=== PATIENT | male | born 1970 | race Caucasian/White ===

== ENCOUNTER 2024-10-01 12:24 | Inpatient (IN) | payer BC, SELFPAY ==
[2024-10-01] VITALS (11 sets, daily range): BP systolic 131–260; BP diastolic 86–140; PULSE 55–74; RESP 17–22; TEMP 36.3–37.2; O2SAT 95–99; BMI 21.7
--- NOTE | ~2024-10-01 | CT_ITS ---
CLINICAL HISTORY: pain CT angiography abdomen and pelvis with contrast. 3-D post processing. Comparison: None Findings: Aorta, mesenteric/renal arteries, and iliofemoral systems are patent. Atherosclerosis calcification of the aorta. No consolidation or effusion. Unremarkable gallbladder and solid organs. No urolithiasis. No bowel obstruction, pneumoperitoneum, or pneumatosis. Pelvic contents unremarkable. Normal appendix. Degenerative changes of the lumbar spine. [id number] compression fracture of the L4 vertebral body. IMPRESSION: No aortic dissection or aneurysm. Compression fracture of the L4 vertebral body. This document has been electronically signed by: Radha Gabriel MD on 10/01/2024 16:28:24
--- NOTE | ~2024-10-01 | CT_ITS ---
CLINICAL HISTORY: pain CT angiography chest with contrast. 3D Postprocessing. Comparison: None Findings: The heart is normal size. RV/LV ratio is normal. The thoracic aorta is normal caliber. No pulmonary artery filling defects. The visualized thyroid and mediastinum are unremarkable. No consolidation or effusion. Severe centrilobular emphysema. 5.3 cm pulmonary nodule of the right upper lobe. No acute fractures. IMPRESSION: No aortic dissection. No evidence of acute pulmonary embolism. Limited evaluation due to the phase of contrast. 5.3 mm pulmonary nodule of the right upper lobe. CT follow-up is recommended. Fleischner Society 2017 Guidelines for incidentally detected indeterminate nodules in persons 35 years of age or older. Single Solid Nodules: 5 mm or smaller nodules need no follow-up in low risk, and [address] follow-up is optional in high risk patients. 6-8 mm nodules have optional [address] follow-up in low risk, and 6-[address] follow-up followed by 18-[address] follow-up if no change in high risk patients. 9 mm or larger nodules should consider CT, PET/CT, or biopsy at 3 months regardless of patient risk. Multiple Solid Nodules: 5 mm or smaller nodules need no follow-up in low risk, and [address] follow-up is optional in high risk patients. 6-8 mm nodules need 3-[address] follow-up followed by an optional 18-[address] follow-up regardless of patient risk. 9 mm or larger nodules should consider 3-[address] follow-up. For low risk 18-24 month follow-up is optional, whereas for high risk it is needed. Single Ground Glass Nodules: 5 mm or smaller nodules need no followup 6 mm and larger nodules need CT at 6-12 months to confirm persistence, then CT every 2 years until 5 years Single Subsolid Nodules: 5 mm or smaller nodules need no followup 6 mm and larger nodules need CT at 3-6 months to confirm persistence. If no change and solid component /T/lt;6 mm, then CT every year until 5 years Multiple Ground Glass or Subsolid Nodules: 5 mm or smaller nodules need CT at 3-6 months. If stable, optional CT at 2 and 4 years. 6 mm or larger nodules need CT at 3-6 months. Subsequent management based on most suspicious nodule This document has been electronically signed by: Radha Gabriel MD on 10/01/2024 16:21:44
--- NOTE | ~2024-10-01 | CT_ITS ---
CLINICAL HISTORY: hypertensive [address] head without contrast Comparison: None Findings: No intra-axial mass, midline shift, hydrocephalus, or acute hemorrhage. No significant atrophy-like change or white matter disease. There is no sinus or mastoid fluid. The orbits are within normal limits. There is no acute fracture. IMPRESSION: 1. No acute intracranial findings. This document has been electronically signed by: Radha Gabriel MD on 10/01/2024 13:49:51
--- NOTE | ~2024-10-01 | XR_ITS ---
CLINICAL HISTORY: chest pain 1 view chest x-ray Comparison: None Findings: No consolidation or effusion. Heart size is normal. No acute fracture. IMPRESSION: 1. No acute findings. This document has been electronically signed by: Radha Gabriel MD on 10/01/2024 13:23:40
--- NOTE | 2024-10-01 12:26 | ECG_ITS ---
Test Reason : CHEST PAIN Blood Pressure : */* mmHG Vent. Rate : 72 BPM Atrial Rate : 72 BPM P-R Int : 142 ms QRS Dur : 102 ms QT Int : 384 ms P-R-T Axes : 7 10 38 degrees QTcB Int : 420 ms Sinus rhythm with occasional Premature ventricular complexes Moderate voltage criteria for LVH, may be normal variant ( Sokolow-Bryant , Benoit product ) Borderline ECG No previous ECGs available Referred By: Brennan Rosenthal Electronically Signed By: Rigoberto Gomez
--- NOTE | 2024-10-01 12:32 | ED_ITS ---
HPI - General Adult General Chief complaint: Chest Pain Stated complaint: Chest Pain Time Seen by Provider: 10/01/24 13:12 Source: patient, family (), RN notes reviewed and old records reviewed Mode of arrival: ambulatory Limitations: no limitations History of Present Illness ED Provider: Adams CHURCHILL narrative: 54-year-old male with past medical history significant for hypertension not on medication presents for evaluation of chest pain and palpitations. The patient reports that he has been noncompliant with his metoprolol since COVID after falling off with his primary doctor. He has therefore not been on any medications in about 5/6 years. He has had intermittent chest pain over last couple of years that was severe today and associated with palpitations and shortness of breath. Currently he was asymptomatic He denies any leg swelling, coughing, fevers, chills. He denies any known family history of coronary artery disease Related Data Previous Rx's ?Medication ?Instructions ?Recorded amlodipine 5 mg tablet 5 mg PO DAILY #90 tabs 10/02/24 lisinopril 10 mg tablet 10 mg PO DAILY #90 tabs 10/02/24 Allergies Allergy/AdvReac Type Severity Reaction Status Date / Time No Known Allergies Allergy Verified 10/01/24 12:28 [No Known Allergies*] Review of Systems 2 Constitutional: Constitutional: Denies body ache(s), Denies chills, Denies fever(s) and Denies headache(s) ENT: Denies headache(s) Cardiovascular: Cardiovascular: Reports chest pain, Reports chest pain at rest, Reports rapid heart rate, Reports palpitations and Reports dyspnea Respiratory: Respiratory: Denies cough and Reports dyspnea Gastrointestinal: Gastrointestinal: Denies abdominal pain, Denies nausea and Denies vomiting Musculoskeletal: Musculoskeletal: Denies back pain Neurologic: Denies headache(s) Endocrine: Endocrine: Reports palpitations PMFSH Social History Social History Household Members: Significant Other Housing: Apartment Do you presently have visiting nurse or other home services: No Alcohol intake: current Alcohol intake frequency: holidays/special occasions only Alcohol type: beer and hard liquor Patient Tobacco Use Status: Current everyday Tobacco user Tobacco use type: Smokeless Tobacco Substance Use Type: Marijuana service: No Physical Exam ED Vital Signs: Vital Signs - 24 hr 10/01/24 12:27 10/01/24 12:42 10/01/24 13:44 Temperature 98 F 99.0 F Pulse Rate 67 74 Respiratory Rate 19 22 H Blood Pressure 260/140 H 230/135 H 185/122 H Pulse Oximetry 98 99 Oxygen Delivery Method Room Air Room Air 10/01/24 14:37 10/01/24 14:40 10/01/24 14:40 Temperature 98.0 F Pulse Rate 68 Respiratory Rate 18 18 Blood Pressure 177/115 H Pulse Oximetry 96 96 Oxygen Delivery Method Room Air Room Air 10/01/24 14:54 Temperature 98.3 F Pulse Rate 73 Respiratory Rate 20 Blood Pressure 174/122 H Pulse Oximetry 97 Oxygen Delivery Method Room Air BMI result Body Mass Index 21.7 Const General: healthy appearing, comfortable, no acute distress, alert and awake Nutritional Appearance: well nourished Orientation/consciousness: patient oriented x3 HENMT Head: Yes normocephalic and Yes atraumatic Eyes Eyelids: Yes eyelids normal Conjunctivae: conjunctivae normal Sclerae: sclerae normal Corneas: corneas normal Pupils: Equal, round and reactive pupils present EOM: EOMs intact bilaterally Neck Neck: Yes full ROM Resp Effort & Inspection: normal respiratory effort, able to speak in complete sentences, no audible wheezes and not labored Auscultation: clear to auscultation bilaterally Cardio Rate: regular rate Rhythm: regular rhythm GI Inspection: No distended Palpation (GI): Soft to palpation, not firm, nontender, no guarding and not rigid Skin General skin exam: elasticity normal Neuro General: patient oriented x3 Cranial nerves: Yes Equal, round and reactive pupils present and Yes Bilaterally intact EOM present Cognition (Neuro): normal cognition Extrem Other: Moving all extremities well without any obvious deformities Course Course Course Narrative: RME: 54-year-old male history of hypertension noncompliant presents to ED for chest pain since this morning. States left-sided chest pain. Patient states feeling off. NIH score is 0. Blood pressure 216/140. EKG labs head CT scan ordered. Patient to be brought back to the ED immediately. Medications Administered Generic Name Dose Route Start Last Admin Trade Name Freq PRN Reason Stop Dose Admin Amlodipine Besylate 5 mg 10/02/24 09:00 10/02/24 07:59 Amlodipine Besylate 5 Mg Tablet PO 5 mg DAILY RAMONE Administration Protocol Lisinopril 10 mg 10/02/24 12:30 10/02/24 12:40 Lisinopril 10 Mg Tablet PO 10 mg DAILY [facility] Administration Protocol Metoprolol Tartrate 25 mg 10/01/24 17:20 10/02/24 07:58 Metoprolol Tartrate 25 Mg Tablet PO 25 mg BID [facility] Administration Protocol Senna 17.2 mg 10/01/24 21:00 10/01/24 20:37 Sennosides 8.6 Mg Tablet PO Not Given BEDTIME [facility] Sodium Chloride 3 ml 10/02/24 00:00 10/02/24 07:53 0.9 % Sodium Chloride Flush 3 Ml Syringe IVFLUSH 3 ml QSHIFT [facility] Administration Discontinued Medications Generic Name Dose Route Start Last Admin Trade Name Freq PRN Reason Stop Dose Admin Amlodipine Besylate 5 mg 10/01/24 13:38 10/01/24 13:44 Amlodipine Besylate 5 Mg Tablet PO 10/01/24 13:39 5 mg ONCE ONE Administration Protocol Hydralazine HCl 10 mg 10/01/24 17:18 10/02/24 04:44 Hydralazine Hcl 20 Mg/Ml Vial IVPUSH 10 mg Q6H PRN Administration forSBP >180 or DBP> 110 Protocol Iohexol 100 ml 10/01/24 14:26 10/01/24 14:27 Iohexol 350 Mg/Ml 100 Ml Infus..Btl IV 10/01/24 14:27 85 ml ONCE ONE Administration Nitroglycerin 0.5 inch 10/01/24 20:00 10/02/24 08:00 Nitroglycerin 2 % Oint 1 Gm Packet TRANSDERMA Not Given RQ6H WHILE AWAKE [facility] Medical Decision Making Medical Decision Making [facility] Narrative: 54-year-old male presents for evaluation of chest pain and shortness of breath. He was noncompliant with his previously prescribed metoprolol for many years. Of note, his blood pressure on arrival to the ED was 260/140. At the time my evaluation it is improved to 203/137 without any intervention. He is currently asymptomatic has no chest pain, palpitations or shortness of breath. His EKG shows sinus rhythm with occasional PVCs. No ST segment elevations or depressions. The patient's labs are reassuring, his troponin is within normal limits of 15.6. Renal function is normal. Given the patient's sudden, severe chest pain and markedly elevated blood pressure we will get a CT angiography of the chest and abdomen to evaluate the aorta. The patient will likely require admission for hypertensive emergency, as I do not feel he will be able to get to see a PCP in a reasonable time to manage his elevated blood pressure since he was not seen 1 in over 5 years. In regards to the patient's blood pressure, given that it is improving without intervention we will give oral amlodipine and hold off on IV antihypertensive medications, as I do not want to drop his blood pressure too quickly. We will continue to follow up closely Differential Diagnosis Differential Diagnoses: The differential diagnosis associated with the presentation includes Chest pain Hypertension Aortic dissection AAA PE less likely Anxiety Hypertensive emergency Admission/Observation Consideration of admission/observation: Escalation of care including admission/observation considered Consult Healthcare Provider Management of the patient was discussed with: Hospitalist Lab Data MDM Lab Attestation statement: I reviewed the patient's lab results. 10/01/24 12:43 10/02/24 05:43 Labs: Lab Results 10/01/24 10/01/24 Range/Units 12:43 12:44 WBC 8.4 (4.8-10.8) X10*3/uL RBC 5.67 (4.60-5.80) X10*6/uL Hgb 17.5 (14.0-18.0) g/dl Hct 50.2 (42.0-52.0) % MCV 88.5 (80.0-98.0) fL MCH 30.9 (27.0-33.0) pg MCHC 34.9 (31.0-36.0) g/dl RDW 14.1 (11.0-16.0) % Plt Count 264 (160-400) X10*3/uL MPV 9.5 (9.4-12.4) fL Immature Gran % (Auto) 0.5 H (0.0-0.4) % Neut % (Auto) 56.5 (45-73) % Lymph % (Auto) 31.0 (20-40) % [place] % (Auto) 9.5 (2-11) % Eos % (Auto) 1.9 (0-4) % Baso % (Auto) 0.6 (0-2) % Lymph # (Auto) 2.6 (1.2-4.9) X10*3/uL [place] # (Auto) 0.8 (0.1-1.2) X10*3/uL Eos # (Auto) 0.2 (0.0-0.4) X10*3/uL Baso # (Auto) 0.1 (0.0-0.2) X10*3/uL Abs Immat Gran (auto) 0.04 H (0.00-0.03) X10*3/uL Absolute Neuts (auto) 4.7 (2.0-8.3) x10*3/uL Absolute Nucleated RBC 0.000 (0.0-0.012) X10*3/uL Nucleated RBC % (auto) 0.0 (0.0-0.2) /100WBC PT 10.2 L (10.9-12.4) SEC INR 0.9 (0.9-1.1) APTT 31.7 (26.0-36.8) SEC Sodium 141 (135-145) mmol/L Potassium 3.5 (3.3-5.1) mmol/L Chloride 104 (96-108) mmol/L Carbon Dioxide 27 (22-29) mmol/L Anion Gap 14 (12-20) BUN 13 (9-16) mg/dL Creatinine 0.84 (0.5-1.4) mg/dL Estim Creat Clear Calc 100.7 Estimated GFR > 60 Random Glucose 102 (60-115) mg/dL Estimat Average Glucose 105 mg/dL Hemoglobin A1c % 5.3 (<6.0) % Calcium 9.4 (8.4-10.2) mg/dL Total Bilirubin 0.7 (0.0-1.0) mg/dL AST 26 (5-37) U/L ALT 22 (0-40) U/L Alkaline Phosphatase 50 (39-117) U/L Troponin I High Sens 15.6 (<3.5-35.0) ng/L Total Protein 7.6 (6.5-8.0) g/dL Albumin 4.6 (3.5-5.0) g/dL Independent Interpretation I performed an independent interpretation of an: EKG (Normal sinus rhythm with the occasional PVC. Rate of [address] segment changes. OH interval within normal limits.) Radiology Impression Discussion of test interpretation with radiology: I have reviewed the radiologist's reading. Radiologist Impression: Findings: The heart is normal size. RV/LV ratio is normal. The thoracic aorta is normal caliber. No pulmonary artery filling defects. The visualized thyroid and mediastinum are unremarkable. No consolidation or effusion. Severe centrilobular emphysema. 5.3 cm pulmonary nodule of the right upper lobe. No acute fractures. IMPRESSION: No aortic dissection. No evidence of acute pulmonary embolism. Limited evaluation due to the phase of contrast. 5.3 mm pulmonary nodule of the right upper lobe. CT follow-up is recommended. Fleischner Society 2017 Guidelines for incidentally detected indeterminate nodules in persons 35 years of age or older. Single Solid Nodules: 5 mm or smaller nodules need no follow-up in low risk, and [address] follow-up is optional in high risk patients. 6-8 mm nodules have optional [address] follow-up in low risk, and 6-[address] follow-up followed by 18-[address] follow-up if no change in high risk patients. 9 mm or larger nodules should consider CT, PET/CT, or biopsy at 3 months regardless of patient risk. Multiple Solid Nodules: 5 mm or smaller nodules need no follow-up in low risk, and [address] follow-up is optional in high risk patients. 6-8 mm nodules need 3-[address] follow-up followed by an optional 18-[address] follow-up regardless of patient risk. 9 mm or larger nodules should consider 3-[address] follow-up. For low risk 18-24 month follow-up is optional, whereas for high risk it is needed. Single Ground Glass Nodules: 5 mm or smaller nodules need no followup 6 mm and larger nodules need CT at 6-12 months to confirm persistence, then CT every 2 years until 5 years Single Subsolid Nodules: 5 mm or smaller nodules need no followup 6 mm and larger nodules need CT at 3-6 months to confirm persistence. If no change and solid component /T/lt;6 mm, then CT every year until 5 years Multiple Ground Glass or Subsolid Nodules: 5 mm or smaller nodules need CT at 3-6 months. If stable, optional CT at 2 and 4 years. 6 mm or larger nodules need CT at 3-6 months. Subsequent management based on most suspicious nodule This document has been electronically signed by: Radha Gabriel MD on 10/01/2024 16:21:44 Findings: Aorta, mesenteric/renal arteries, and iliofemoral systems are patent. Atherosclerosis calcification of the aorta. No consolidation or effusion. Unremarkable gallbladder and solid organs. No urolithiasis. No bowel obstruction, pneumoperitoneum, or pneumatosis. Pelvic contents unremarkable. Normal appendix. Degenerative changes of the lumbar spine. [id number] compression fracture of the L4 vertebral body. IMPRESSION: No aortic dissection or aneurysm. Compression fracture of the L4 vertebral body. This document has been electronically signed by: Radha Gabriel MD on 10/01/2024 16:28:24 Discharge Plan Discharge Clinical Impression: Chest pain, Hypertensive emergency Patient Disposition: Admitted As Inpatient Interventions: Admission Worksheet (ED) Last Done: 10/01/24 18:11 Discharge Date/Time: 10/02/24 09:05
--- NOTE | 2024-10-01 12:43 | PC.NURSE ---
54 M presents to ED c/o chest pain, non radiating, rating it 8/10. Denies N/V. VSS expect for hypertension. Patient claims I havent take my blood pressure medication in years 18 placed in RAC. Labs obtained sent to lab. Patient reports increased SOB. Denies hx of asthma and COPD, on RA w/o difficulty no WOB. Patient pending CT/ xray to be completed at this time.
[2024-10-01 12:53] LABS: MANUAL DIFF FLAG NO
[2024-10-01 12:55] LABS: Basophils Absolute Auto 0.1 X10*3/uL (0.0-0.2); Basophils Percent Auto 0.6 % (0-2); Eosinophils Absolute Auto 0.2 X10*3/uL (0.0-0.4); Eosinophils Percent Auto 1.9 % (0-4); Hematocrit 50.2 % (42.0-52.0); Hemoglobin 17.5 g/dl (14.0-18.0); Imm Gran Abs Auto 0.04 X10*3/uL (0.00-0.03); Imm Gran Pct Auto 0.5 % (0.0-0.4); Lymphocytes Absolute Auto 2.6 X10*3/uL (1.2-4.9); Mean Corpuscular HGB Conc 34.9 g/dl (31.0-36.0); Mean Corpuscular Hemoglobin 30.9 pg (27.0-33.0); Mean Corpuscular Volume 88.5 fL (80.0-98.0); Mean Platelet Volume 9.5 fL (9.4-12.4); Monocytes Absolute Auto 0.8 X10*3/uL (0.1-1.2); Monocytes Percent Auto 9.5 % (2-11); Neutrophils Absolute Auto 4.7 x10*3/uL (2.0-8.3); Neutrophils Percent Auto 56.5 % (45-73); Platelet Count 264 X10*3/uL (160-400); Red Blood Count 5.67 X10*6/uL (4.60-5.80); Red Cell Distribution Width 14.1 % (11.0-16.0); White Blood Count 8.4 X10*3/uL (4.8-10.8)
[2024-10-01 13:03] LABS: INTERNATIONAL NORM RATIO 0.9 (0.9-1.1); Prothrombin Time 10.2 SEC (10.9-12.4)
[2024-10-01 13:05] LABS: Partial Thromboplastin Time 31.7 SEC (26.0-36.8)
[2024-10-01 13:21] LABS: Troponin-I High Sensitivity 15.6 ng/L (<3.5-35.0)
[2024-10-01 13:28] LABS: Alanine Aminotransferase 22 U/L (0-40); Albumin Level 4.6 g/dL (3.5-5.0); Alkaline Phosphatase 50 U/L (39-117); Anion Gap 14 (12-20); Aspartate Amino Transferase 26 U/L (5-37); Bilirubin Total 0.7 mg/dL (0.0-1.0); Blood Urea Nitrogen 13 mg/dL (9-16); Calcium 9.4 mg/dL (8.4-10.2); Carbon Dioxide 27 mmol/L (22-29); Chloride 104 mmol/L (96-108); Creatinine Clr Calc Pharmacy 100.7; Estimated Glomerular Filt Rate > 60; Glucose Random 102 mg/dL (60-115); Potassium 3.5 mmol/L (3.3-5.1); Sodium 141 mmol/L (135-145); Total Protein 7.6 g/dL (6.5-8.0)
[2024-10-01] MEDS: amLODIPine Besylate 5 MG TABLET PO (13:44)
--- NOTE | 2024-10-01 13:50 | PC.NURSE ---
Patient remains hypertensive, medication given per provider order. Effectiveness pending
[2024-10-01] MEDS: iohexoL 350 MG/ML 100 ML INFUS..BTL IV (14:27)
--- NOTE | 2024-10-01 16:50 | PC.NURSE ---
CT/xray scans resulted. Patient spoke with ED provider/ aware of plan in regards to being admitted. Patient currently pending admission.
--- NOTE | 2024-10-01 16:57 | PHA.MEDREC ---
Pharmacy Consult ? Medication Reconciliation Pharmacy has completed the medication reconciliation. Spoke with patient to confirm. He does not use any prescriptions or OTC.
--- NOTE | 2024-10-01 16:59 | P.HPHOSP_ITS ---
History of Present Illness Date of Service: 10/01/24 Chief Complaint: chest pain, shortness of breath 54 year male with history of HTN but has not taking meds in nearly 5 years as he has been lost to follow up following covid 19 epidemic, and presents with chest pain, shortness of breath since this morning. He was found to have BP 260/140, cardiac enzymes negative. ECG show no acute finding, LVH by voltage criteria, CTA of chest no PE or disection, CT head no acute finding. CTA of abdomen no acute finding. Following Just 5 mg of PO Norvasc, blood pressure is now 174/122 Review of Systems 2 Review of Systems: Gen: no fever Resp: no sob, no cough CV: no chest, no DUFF, no leg edema GI: No n/v, no abd pain Neuro: No confusion Yes all other systems are reviewed and are negative [facility] Social History Alcohol intake: current Alcohol intake frequency: holidays/special occasions only Alcohol type: beer and hard liquor Smoked in Last 30 Days: Yes Use of substances other than those prescribed or required for medical reasons: No Advance Directives: No Advance Directives Information Provided: No Do you have a plan to hurt others: No Plan Meds Allergies Allergy/AdvReac Type Severity Reaction Status Date / Time No Known Allergies Allergy Verified 10/01/24 12:28 [No Known Allergies*] Active Medications: Current Medications Acetaminophen (Acetaminophen 325 Mg Tablet) 650 mg PO Q6H PRN PRN Reason: Pain, Mild 1-3,fever,headache Calcium Carbonate (Calcium Carbonate 750 Mg Tab.Chew) 750 mg PO Q4H PRN PRN Reason: Heartburn Magnesium Hydroxide (Milk Of Magnesia 30 Ml Oral.Susp) 30 ml PO DAILY PRN PRN Reason: Constipation Melatonin (Melatonin 3 Mg Tablet) 6 mg PO BEDTIME PRN PRN Reason: Insomnia Ondansetron HCl (Ondansetron Hcl 4 Mg/2 Ml Vial) 4 mg IVPUSH Q8H PRN PRN Reason: Nausea and Vomiting Senna (Sennosides 8.6 Mg Tablet) 17.2 mg PO BEDTIME RAMONE Sodium Chloride (0.9 % Sodium Chloride Flush 3 Ml Syringe) 3 ml IVFLUSH QSHIFT RAMONE Home Medications ?Medication ?Instructions ?Recorded ?Confirmed ?Last Taken ?Type No Known Home Meds 10/01/24 10/01/24 Unknown History Physical Exam 2 Vital Signs and Narrative: Vital Signs: Last Vital Signs Temp 98.3 F 10/01/24 14:54 Pulse 73 10/01/24 14:54 Resp 20 10/01/24 14:54 BP 174/122 H 10/01/24 14:54 Pulse Ox 97 10/01/24 14:54 O2 Del Method Room Air 10/01/24 14:54 BMI result Body Mass Index 21.7 Const: Other: Constitutional: Alert, in no distress, Mental Status: Oriented to person, place and time. Eyes: Pupils are equal, round and reactive to light. Ear, Nose and Throat: Oropharynx clear, mucous membranes moist. Ears and nose without deformity. Trachea midline. Respiratory: Clear to auscultation. No wheezing, rales or rhonchi. Cardiovascular: S1 S2 regular. No murmurs, rubs or gallops. Gastrointestinal: Abdomen soft, non-tender, non-distended. Normal bowel sounds.? Neurologic: Cranial nerves II-XII grossly intact. No focal neurological deficits. Moves all extremities spontaneously.? Skin: No rashes or lesions.? Musculoskeletal: No cyanosis or clubbing. Psychiatric: Normal mood and affect? Results Labs 10/01/24 12:43 10/01/24 12:44 Labs: Laboratory Results - last 24 hr 10/01/24 10/01/24 12:43 12:44 MCV 88.5 MCH 30.9 MCHC 34.9 RDW 14.1 Plt Count 264 MPV 9.5 Immature Gran % (Auto) 0.5 H Neut % (Auto) 56.5 Lymph % (Auto) 31.0 [place] % (Auto) 9.5 Eos % (Auto) 1.9 Baso % (Auto) 0.6 Lymph # (Auto) 2.6 [place] # (Auto) 0.8 Eos # (Auto) 0.2 Baso # (Auto) 0.1 Abs Immat Gran (auto) 0.04 H Absolute Neuts (auto) 4.7 Absolute Nucleated RBC 0.000 Nucleated RBC % (auto) 0.0 PT 10.2 L INR 0.9 APTT 31.7 Anion Gap 14 Estim Creat Clear Calc 100.7 Estimated GFR > 60 Random Glucose 102 Calcium 9.4 Total Bilirubin 0.7 AST 26 ALT 22 Alkaline Phosphatase 50 Total Protein 7.6 Albumin 4.6 Assessment and Plan (1) Hypertensive emergency: Status: Acute (2) Chest pain: Status: Acute Plan 54 year male with history of HTN but has not taking meds in nearly 5 years and presents with chest pain, shortness of breath since this morning. He was found to have BP 260/140, cardiac enzymes negative. ECG show no acute finding, LVH by voltage criteria, CTA of chest no PE or disection, CT head no acute finding. CTA of abdomen no acute finding. Following Just 5 mg of PO Norvasc, blood pressure is now 174/122 HTN urgency, BP has come down but remains high start oral meds including Norvasc and Metoprolol IV hydralazine or Labetalol PRN for extremely high BP Avoid rapid lowering of BP Anxiety PRN ativan Pulmonary nodule, small, outpatient f/u Other screen: check lipid in the morning, A1C Quality Stroke Does the patient have a stroke diagnosis?: No VTE Prior VTE?: No VTE Risk Level:: Medical - low VTE Device Contraindication: Treatment Not Indicated VTE Drug Contraindication: Treatment Not Indicated
[2024-10-01] MEDS: Metoprolol Tartrate 25 MG TABLET PO (17:31)
[2024-10-01 17:40] LABS: Estimated Average Glucose 105 mg/dL; Hemoglobin A1C 154.5468 umol/L; Hemoglobin A1c % 5.3 % (<6.0); Total Hemoglobin (HGBA1C) 4542.2908 umol/L
[2024-10-01 17:49] LABS: Alanine Aminotransferase 18 U/L (0-40); Albumin Level 3.9 g/dL (3.5-5.0); Aspartate Amino Transferase 23 U/L (5-37); Bilirubin Direct 0.2 mg/dL (0.0-0.5); Bilirubin Total 0.7 mg/dL (0.0-1.0); Cholesterol 227 mg/dL (<200); HDL Cholesterol 68 mg/dL (>40); LDL Cholesterol Calculated 137 mg/dL (<100); Total Protein 6.4 g/dL (6.5-8.0); Triglycerides 114 mg/dL (<150)
[2024-10-01 18:03] LABS: Alkaline Phosphatase 42 U/L (39-117)
[2024-10-01 18:10] LABS: Thyroid Stimulating Hormone 2.54 uIU/mL (0.32-4.0)
[2024-10-02] VITALS (16 sets, daily range): BP systolic 132–166; BP diastolic 78–114; PULSE 45–88; RESP 13–18; TEMP 36.3–36.6; O2SAT 95–97; BMI 22.1
[2024-10-02] MEDS: hydrALAZINE HCl 20 MG/ML VIAL 10 MG IVPUSH (04:44)
[2024-10-02 06:06] LABS: Anion Gap 16 (12-20); Blood Urea Nitrogen 15 mg/dL (9-16); Calcium 8.8 mg/dL (8.4-10.2); Carbon Dioxide 21 mmol/L (22-29); Chloride 106 mmol/L (96-108); Creatinine Clr Calc Pharmacy 115.9; Estimated Glomerular Filt Rate > 60; Glucose Random 101 mg/dL (60-115); Sodium 139 mmol/L (135-145)
[2024-10-02] MEDS: 0.9 % Sodium Chloride Flush 3 ML SYRINGE IVFLUSH (07:53)
[2024-10-02] MEDS: Metoprolol Tartrate 25 MG TABLET PO (07:58)
[2024-10-02] MEDS: amLODIPine Besylate 5 MG TABLET PO (07:59)
--- NOTE | 2024-10-02 08:00 | PC.NURSE ---
Provider notified of patients BP, stating to hold nitro patch, give po meds, and patient will be discharged from the ED ,not to send upstairs. Patient aware and in agreement with plan
--- NOTE | 2024-10-02 08:07 | P.DS_ITS ---
DS: Providers Provider Date of Service: 10/02/24 Date of admission: 10/01/24 16:53 Date of discharge: 10/02/24 Primary care physician: Richard Gandara MD DS: Diagnosis Discharge Diagnosis (1) Hypertensive emergency: Status: Acute (2) Chest pain: Status: Acute DS: Summary Hospital Course Hospital Course: This is a 54-year-old male with a history of hypertension who has been off medications for nearly five years after being lost to follow-up during the COVID-19 pandemic. He presented with chest pain and shortness of breath that began earlier in the day. On arrival, his blood pressure was markedly elevated at 260/140 mmHg. Cardiac enzymes were negative. Electrocardiogram showed no acute ischemic changes but did demonstrate left ventricular hypertrophy by voltage criteria. CTA of the chest ruled out pulmonary embolism and aortic dissection. CT of the head was unremarkable for acute findings. CTA of the abdomen also showed no acute abnormalities. After administration of 5 mg of oral Norvasc, his blood pressure improved to 174/122 mmHg. During his hospital course, the patient was admitted and started on Norvasc 5 mg daily, metoprolol 25 mg twice daily, nitroglycerin paste, and PRN hydralazine for accelerated hypertension. His blood pressure gradually improved and at the time of discharge was 140/104 mmHg. He remained asymptomatic without chest pain or shortness of breath. It is anticipated that he will require further medication adjustment as an outpatient. Laboratory testing revealed a total cholesterol level of 227 mg/dL and an LDL cholesterol of 137 mg/dL. He was star tej on Lipitor 20 mg daily. He has been advised to monitor his blood pressures at home and follow up with a primary care physician for further management. He will be discharged with lisinopril 10, norvasc 5. HR was droping to 45 with metoprolol, however no pauses Status at Discharge Cognitive/behavioral status at discharge: Chief Complaint: chest pain, shortness of breath Time Attestation Discharge Coordination Time (in mins): 35 Quality: Safe Use of Opioids Does Pt have an Active Cancer Diagnosis on the Problem List?: No Quality: Stroke Does the patient have a stroke diagnosis?: No Physical Exam Vital Signs: Vital Signs: Last Vital Signs Temp 97.8 F 10/02/24 08:05 Pulse 88 10/02/24 08:05 Resp 18 10/02/24 08:05 BP 140/104 H 10/02/24 07:58 Pulse Ox 96 10/02/24 08:05 O2 Del Method Room Air 10/02/24 08:05 BMI result Body Mass Index 21.7 DS: Data Data Completed and Pending Labs on day of discharge: Laboratory Results - last 24 hr 10/01/24 10/01/24 10/01/24 12:43 12:44 17:25 WBC 8.4 RBC 5.67 Hgb 17.5 Hct 50.2 MCV 88.5 MCH 30.9 MCHC 34.9 RDW 14.1 Plt Count 264 MPV 9.5 Immature Gran % (Auto) 0.5 H Neut % (Auto) 56.5 Lymph % (Auto) 31.0 [place] % (Auto) 9.5 Eos % (Auto) 1.9 Baso % (Auto) 0.6 Lymph # (Auto) 2.6 [place] # (Auto) 0.8 Eos # (Auto) 0.2 Baso # (Auto) 0.1 Abs Immat Gran (auto) 0.04 H Absolute Neuts (auto) 4.7 Absolute Nucleated RBC 0.000 Nucleated RBC % (auto) 0.0 Hold Purple Top PT 10.2 L INR 0.9 APTT 31.7 Sodium 141 Potassium 3.5 Chloride 104 Carbon Dioxide 27 Anion Gap 14 BUN 13 Creatinine 0.84 Estim Creat Clear Calc 100.7 Estimated GFR > 60 Random Glucose 102 Estimat Average Glucose 105 Hemoglobin A1c % 5.3 Calcium 9.4 Total Bilirubin 0.7 0.7 Direct Bilirubin 0.2 AST 26 23 ALT 22 18 Alkaline Phosphatase 50 42 Troponin I High Sens 15.6 Total Protein 7.6 6.4 L Albumin 4.6 3.9 Triglycerides 114 Cholesterol 227 H LDL Cholesterol, Calc 137 H HDL Cholesterol 68 TSH 2.54 10/02/24 05:43 WBC RBC Hgb Hct MCV MCH MCHC RDW Plt Count MPV Immature Gran % (Auto) Neut % (Auto) Lymph % (Auto) [place] % (Auto) Eos % (Auto) Baso % (Auto) Lymph # (Auto) [place] # (Auto) Eos # (Auto) Baso # (Auto) Abs Immat Gran (auto) Absolute Neuts (auto) Absolute Nucleated RBC Nucleated RBC % (auto) Hold Purple Top SEE NOTE PT INR APTT Sodium 139 Potassium 4.0 Chloride 106 Carbon Dioxide 21 L Anion Gap 16 BUN 15 Creatinine 0.73 Estim Creat Clear Calc 115.9 Estimated GFR > 60 Random Glucose 101 Estimat Average Glucose Hemoglobin A1c % Calcium 8.8 D Total Bilirubin Direct Bilirubin AST ALT Alkaline Phosphatase Troponin I High Sens Total Protein Albumin Triglycerides Cholesterol LDL Cholesterol, Calc HDL Cholesterol TSH Discharge Plan Discharge Anticipated Discharge Date/Time: 10/02/24 08:04 Patient Disposition: Home, Self-Care Discharge Diagnosis: Hypertension urgency, chest pain Referrals: Richard Gandara MD [Primary Care Provider] - 1 Week Discharge Medications: New amlodipine 5 mg Tablet 5 mg PO DAILY Qty: 90 0RF Protocol: Hold for SBP< HOLD for SBP < : 90 lisinopril 10 mg Tablet 10 mg PO DAILY Qty: 90 0RF Protocol: Hold for SBP< HOLD for SBP < : 90 atorvastatin [Lipitor] 20 mg tablet 20 mg PO BEDTIME Qty: 90 0RF Discharge Orders: Discharge Order (Routine); Ordered 10/02/24 Ordered By: Marlo Ramos Diet: Advance to usual diet Activity on Discharge: As tolerated Stand Alone Forms: Patient Portal Discharge page, Work/School Release Print Language: Korean Other Ambulatory Orders: Basic Metabolic Panel Fasting (Routine) Timeframe: 1 Week Facility: [facility] - Location: Laboratory Ordered By: Marlo Ramos Care Plan Goals: Achieve blood pressure control to target <140/90 mmHg and reduce cardiovascular risk by initiating and titrating antihypertensive and lipid-lowering therapy; ensure symptom resolution and prevent future hypertensive crises. Health Concerns: Untreated and uncontrolled HTN causing chest pain and shortness of breath Plan of Treatment: * Continue Norvasc 5 mg daily and lisinopril 10 mg daily * Start Lipitor 20 mg daily for cholesterol management. * Encourage home blood pressure monitoring twice daily. * Follow up with primary care for medication adjustment and cardiovascular risk assessment within 1?2 weeks--call Dr. Gandara's office Assessment: * Discharge Date/Time: 10/02/24 14:59
--- NOTE | 2024-10-02 09:44 | MHC.CM.PN ---
Pt. lives with spouse, he is independent, no home health services or DME. HCP discussed, form was given for him to complete on his own. PCP is the provider that is taking over Dr. Medina's patients. Pt will go home via , DCP: home, self care. CM to follow for DC needs.
[2024-10-02] MEDS: lisinopriL 10 MG TABLET PO (12:40)
== END 2024-10-02 14:59 | disposition home or self-care (01) | DRG 199 ==
LOC: HO.ED 16:38 → HO.EDOVER 17:03 → HO.IMC 10-02 07:46 → HO.EDOVER 10-02 08:05 → HO.IMC 10-02 08:14
PROVIDERS: Physician Assistant; Admitting Provider Internal Medicine; Emergency Provider Emergency Medicine; PCP Internal Medicine; Visit Provider Internal Medicine
DX: I16.1 Hypertensive emergency (principal); F17.210 Nicotine dependence, cigarettes, uncomplicated; I10 Essential (primary) hypertension; T44.7X6A Underdosing of beta-adrenoreceptor antagonists, initial encounter; F41.9 Anxiety disorder, unspecified; Z71.6 Tobacco abuse counseling
CPT/HCPCS: 36415; 70450; 71045; 71275; 74174; 80048; 80053; 80061; 80076; 83036; 84443; 84484; 85025; 85610; 85730; 93005; 99285; J0360; Q9967

== ENCOUNTER → 2024-10-01 12:26 | Outpatient (BNV) | payer BC, SELFPAY | PROVIDERS: Admitting Provider Internal Medicine; Emergency Provider Emergency Medicine; PCP Internal Medicine; Visit Provider Internal Medicine Cardiovascular Disease | DX: I49.3 Ventricular premature depolarization (principal); I51.7 Cardiomegaly | CPT/HCPCS: 93010 ==

== ENCOUNTER → 2024-10-01 12:28 | Outpatient (BNV) | payer BC, SELFPAY | PROVIDERS: Emergency Provider Emergency Medicine; PCP Internal Medicine; Visit Provider Nuclear Medicine | DX: S32.040A Wedge compression fracture of fourth lumbar vertebra, initial encounter for closed fracture (principal); R91.1 Solitary pulmonary nodule; R07.9 Chest pain, unspecified; I10 Essential (primary) hypertension | CPT/HCPCS: 70450; 71045; 71275; 74174 ==

== ENCOUNTER → 2024-10-01 16:53 | Outpatient (BNV) | payer BC, SELFPAY | PROVIDERS: Admitting Provider Internal Medicine; Emergency Provider Emergency Medicine; PCP Internal Medicine; Visit Provider Internal Medicine | DX: I16.1 Hypertensive emergency (principal); R07.9 Chest pain, unspecified | CPT/HCPCS: 99223 ==

== ENCOUNTER 2025-02-07 15:49 | Outpatient (AMB) | payer BC, SELFPAY ==
--- NOTE | 2025-02-07 08:39 | A.OFFPC_ITS ---
Vital Signs 02/07/25 16:13 Height 6 ft Weight 161 lb BMI 21.8 BP 130/76 Blood Pressure Location Lt brachial Position Sitting Pulse 90 Pulse Source Pulse Oximeter Temp 97.7 F Temp Source Temporal Artery Scan Pulse Oximetry (%) 95 Oxygen Delivery Method Room Air Intake Visit Reasons: Annual / Dr Gandara Maintenance [place] Required: No Accompanied by: Self / Same As Patient Allergies No Known Allergies (No Known Allergies*) Allergy (Verified 02/07/25 08:40) Tobacco use date assessed: 02/07/25 Dental Screening Dental Screen Date: 02/07/25 Did you have a dental visit in the last 12 months?: Yes Did you have a dental problem in the last 6 months where you did not have access to dental care?: No HPI HPI Comments History of Present Illness Details The patient is a 54-year-old male presenting with concerns of high blood pressure and anxiety management in new patient visit. The patient has a history of essential hypertension, previously managed with amlodipine and Lisinopril, but has not taken his medication for approximately three weeks, leading to a deterioration in his condition. He was seen in the emergency room in September for chest pain and elevated blood pressure. His BP today was 130/76. The patient reports significant anxiety exacerbated by the COVID-19 pandemic and personal stressors, including being the primary caregiver for his family. He believes that managing his anxiety would help control his blood pressure better, but previous medication was ineffective, and he attempted to increase the dosage without success. The patient has been advised to consider cholesterol management due to elevated levels noted during an emergency room visit, although he has not started any medication for hyperlipidemia. [facility] Medical History (Updated 02/12/25 @ 00:56 by SOLITARIO Wayne) Anxiety Hyperlipidemia Hypertension Family History (Updated 02/07/25 @ 16:18 by Criss Suárez MA) Mother No problems noted. Father No problems noted. Social History Household Members: Significant Other Housing: Apartment Do you presently have visiting nurse or other home services: No Alcohol intake: current Alcohol intake frequency: holidays/special occasions only Alcohol type: beer and hard liquor Patient Tobacco Use Status: Never used Tobacco e-Cigarette/Vaping Use: Currently Using (only vape) Substance Use Type: Marijuana service: No Current occupational status: employed Cognitive needs: No Hearing needs: No Vision needs: Yes (reading glasses) Questionnaire PHQ-9 Over the last 2 weeks, how often have you been bothered by any of the following problems? 1. Little interest or pleasure in doing things: not at all 2. Feeling down, depressed, or hopeless: nearly every day (anxiety) 3. Trouble falling or staying asleep, or sleeping too much: not at all 4. Feeling tired or having little energy: nearly every day 5. Poor appetite or overeating: not at all 6. Feeling bad about yourself - or that you are a failure or have let yourself or your family down: not at all 7. Trouble concentrating on things, such as reading the newspaper or watching television: not at all 8. Moving or speaking so slowly that other people could have noticed. Or the opposite - being so fidgety or restless that you have been moving around a lot more than usual: not at all 9. Thoughts that you would be better off or of hurting yourself in some way: not at all Total score: 6 Source: Developed by Drs. Art Colbert, Alba Higgins, Taco Majano and colleagues, with an educational jolly from [employer] Thrive Questionnaire Date Thrive assessed: 02/07/25 I am a: Patient Within the past 12 months, did the food you bought not last and you didn't have the money to get more?: Never true Within the past 12 months, did you worry whether your food would run out before you got money to buy more?: Never true Do you have trouble paying for medicines?: No Do you have trouble getting transportation to medical appointments?: No Do you have trouble paying your heating and electricity bill?: No Do you have trouble taking care of your child, family member or friend?: No Do you have trouble with day-to-day activities such as bathing, preparing meals, shopping, managing finances, etc.?: No Are you currently unemployed and looking for a job?: No Are you interested in more education?: No THRIVE Score: 0 AUDIT C Alcohol Use Questionnaire (AUDIT-C) 1. How often do you have a drink containing alcohol?: Monthly or less 2. How many drinks containing alcohol do you have on a typical day when you are drinking?: 1 or 2 3. How often do you have six or more drinks on one occasion?: Less than monthly Total Score: 2 JUSTIN-7 AMB Questionnaire JUTSIN-7 Date JUSTIN - 7 assessed: 02/07/25 Feeling nervous, anxious, or on edge: 3 = Nearly every day Not being able to stop or control worryin = Not at all Worrying too much about different things: 0 = Not at all Trouble relaxin = Not at all Being so restless that it is hard to sit still: 0 = Not at all Becoming easily annoyed or irritable: 0 = Not at all Feeling afraid as if something awful might happen: 0 = Not at all Total JUSTIN-7 score (0-4 normal; 5-9 mild; 10-14 moderate; 15-21 severe): 3 Source: Developed by Drs. Art Colbert, Abla Higgins, Taco Majano and colleagues, with an educational jolly from [employer] Review of Systems Const Details: CONSTITUTIONAL Negative HEAD/NECK Pressure in head EAR/NOSE/MOUTH/THROAT Negative RESPIRATORY Negative CARDIOVASCULAR No chest pain No shortness of breath GASTROINTESTINAL Negative NEUROLOGICAL Negative PSYCHIATRIC Anxiety Physical exam (Primary Care) Vital Signs: Last Vital Signs Temp 97.7 F 02/07/25 16:13 Pulse 90 02/07/25 16:13 BP 130/76 02/07/25 16:13 Pulse Ox 95 02/07/25 16:13 Oxygen Delivery Method Room Air 02/07/25 16:13 BMI result Body Mass Index 21.8 GENERAL Well developed, Well nourished, in no apparent distress HEENT Head-Normocephalic Eyes- PERRLA, EOMI, Conjuctiva clear, lids WNL Ears- Canals clear, TMs WNL Mouth/Throat-No lesions, no erythema, no exudate Neck- Supple, No lymphadenopathy, thyroid WNL RESPIRATORY Normal I:E, Clear to auscultation CARDIOVASCULAR Regular, rate and rhythm, No murmurs or rubs GASTROINTESTINAL Soft, nontender, normal bowel sounds, no masses NEUROLOGICAL Gait normal PSYCHIATRIC Oriented to person, place and time Mood and affect Anxiety Appearance WNL Speech WNL Thought processes WNL Tobacco/Smoking Status: Tobacco use Status Tobacco use date assessed 02/07/25 02/07/25 08:41 Patient Tobacco Use Status Never used Tobacco 02/07/25 16:19 Tobacco use type 02/07/25 16:19 e-Cigarette/Vaping Use Currently Using (only vape) 02/07/25 16:19 PHQ-9: PHQ-9 Score PHQ-9: Total score 6 02/07/25 17:29 Thrive Assessment: Date of Thrive Assessment Date Thrive assessed 02/07/25 02/07/25 08:41 Coding Level of Care Code New Pt New Pt Level 4 (97029) Patient Type New Diagnoses Primary hypertension I10 Hypertension type: primary hypertension Anxiety F41.9 Hyperlipidemia E78.5 Time Spent (min) 35 Comment Time spent on H&P, patient education, placing orders and arranging follow up Assessment & Plan Assessment & Plan (1) Hypertension: Comment: BP today was 130/76 Code(s): I10 - Essential (primary) hypertension Category: Medical Qualifiers: Hypertension type: primary hypertension Qualified Code(s): I10 - Essential (primary) hypertension Plan: The patient will resume amlodipine and Lisinopril for blood pressure management, as he has not taken these medications for three weeks. Routine blood work will be conducted to monitor his condition, and a follow-up appointment is scheduled in four to six weeks to assess the efficacy of the treatment and review lab results. (2) Anxiety: Code(s): F41.9 - Anxiety disorder, unspecified Category: Medical Plan: The patient will start sertraline at bedtime as an SSRI to manage anxiety, with hydroxyzine prescribed as needed for acute anxiety episodes. The patient will be monitored for response to these medications, with a follow-up appointment in four to six weeks to evaluate progress. (3) Hyperlipidemia: Code(s): E78.5 - Hyperlipidemia, unspecified Category: Medical Plan: The patient has been advised to undergo routine blood work to assess cholesterol levels and consider starting cholesterol-lowering medication based on the results. A follow-up appointment is scheduled to discuss the lab results and potential treatment options. Plan - Routine blood work scheduled to monitor cholesterol levels and overall health status. - Follow-up appointment planned in four to six weeks to assess medication efficacy and lab results. I discussed with the patient the importance of resuming his blood pressure medications and starting treatment for anxiety with sertraline and hydroxyzine. We also talked about the need for routine blood work to monitor cholesterol levels and the potential for starting cholesterol-lowering medication. A follow- up appointment was scheduled in four to six weeks to evaluate the effectiveness of the treatments and review lab results. Orders: Orders Complete Blood Count Auto Diff 02/07/25 I10 - Essential (primary) hypertension Comprehensive Met. Panel 02/07/25 F41.9 - Anxiety disorder, unspecified, I10 - Essential (primary) hypertension, Z13.1 - Encounter for screening for diabetes mellitus Lipid Panel 02/07/25 Z13.220 - Encounter for screening for lipoid disorders TSH reflex Free T4 02/07/25 F41.9 - Anxiety disorder, unspecified, I10 - Essential (primary) hypertension Medications: New lisinopril 10 mg PO DAILY 90 tabs 0RF for blood pressure hydroxyzine HCl 25 mg PO TID PRN 90 tabs 1RF anxiety amlodipine 5 mg PO DAILY 90 tabs 0RF for blood pressure sertraline take at bedtime 25 mg PO DAILY 60 tabs 0RF Discontinued amlodipine Discontinued Reason: Doctor's Order 5 mg See Protocol PO DAILY 90 tabs 0RF lisinopril Discontinued Reason: Doctor's Order 10 mg See Protocol PO DAILY 90 tabs 0RF Patient Instructions: - Start taking sertraline at bedtime and use hydroxyzine as needed for anxiety. - Complete routine blood work before the next appointment, ensuring it is done fasting. - Attend the follow-up appointment in four to six weeks to discuss treatment progress and lab results.
[2025-02-07 16:13] VITALS: BP 130/76; PULSE 90; TEMP 36.5; O2SAT 95; BMI 21.8
== END 2025-02-07 16:38 | disposition home or self-care (01) ==
LOC: HO.HMCHD 15:49
PROVIDERS: PCP Internal Medicine; Visit Provider Physician Assistant Medical
DX: I10 Essential (primary) hypertension (principal); F41.9 Anxiety disorder, unspecified; E78.5 Hyperlipidemia, unspecified

== ENCOUNTER 2025-03-21 15:19 | Outpatient (AMB) | payer BC, SELFPAY ==
[2025-03-21 11:01] VITALS: BP 122/76; PULSE 82; TEMP 36.2; O2SAT 96; BMI 21.4
--- NOTE | 2025-03-21 11:01 | A.OFFPC_ITS ---
Vital Signs 03/21/25 11:01 Height 6 ft Weight 158 lb 2 oz BMI 21.4 BP 122/76 Blood Pressure Location Rt brachial Position Sitting Pulse 82 Pulse Source Pulse Oximeter Temp 97.2 F Temp Source Temporal Artery Scan Pulse Oximetry (%) 96 Oxygen Delivery Method Room Air Intake Visit Reasons: routine Postie Required: No Accompanied by: Self / Same As Patient Allergies No Known Allergies (No Known Allergies*) Allergy (Verified 03/21/25 11:01) Medication List - Last Reconciled 04/22/25 by SOLITARIO Wayne amlodipine 5 mg PO DAILY hydroxyzine HCl 25 mg PO TID PRN lisinopril 10 mg PO DAILY Tobacco use date assessed: 03/21/25 Dental Screening Dental Screen Date: 03/21/25 Did you have a dental visit in the last 12 months?: Yes Did you have a dental problem in the last 6 months where you did not have access to dental care?: No HPI HPI Comments History of Present Illness Details The patient is a 55-year-old male with HTN, HLD and anxiety presenting for hypertension management and anxiety concerns. The patient has been taking lisinopril and amlodipine for hypertension management. He reports that his blood pressure is well-controlled with these medications. BP today was 122/76. The patient was prescribed sertraline for anxiety but discontinued it after three weeks due to adverse effects, including insomnia and decreased appetite. He reports that hydroxyzine has been effective in managing his anxiety symptoms without significant side effects. The patient sustained a rib injury three weeks ago after a fall, resulting in pain and difficulty sleeping on his side. He experienced initial dyspnea, which has since improved. He has not gone to get his labs done yet. Medical History: - Hypertension - Anxiety Patient was informed and verbally consented to the use of an ambient scribe for clinic note documentation during this visit. [facility] Medical History (Updated 04/22/25 @ 22:33 by SOLITARIO Wayne) Anxiety Hyperlipidemia Hypertension Rib pain Family History Mother No problems noted. Father No problems noted. Social History Household Members: Significant Other Housing: Apartment Do you presently have visiting nurse or other home services: No Alcohol intake: current Alcohol intake frequency: holidays/special occasions only Alcohol type: beer and hard liquor Patient Tobacco Use Status: Never used Tobacco e-Cigarette/Vaping Use: Currently Using (only vape) Substance Use Type: Marijuana service: No Current occupational status: employed Cognitive needs: No Hearing needs: No Vision needs: Yes (reading glasses) Questionnaire PHQ-9 Over the last 2 weeks, how often have you been bothered by any of the following problems? 1. Little interest or pleasure in doing things: not at all 2. Feeling down, depressed, or hopeless: not at all 3. Trouble falling or staying asleep, or sleeping too much: not at all 4. Feeling tired or having little energy: not at all 5. Poor appetite or overeating: not at all 6. Feeling bad about yourself - or that you are a failure or have let yourself or your family down: not at all 7. Trouble concentrating on things, such as reading the newspaper or watching television: not at all 8. Moving or speaking so slowly that other people could have noticed. Or the opposite - being so fidgety or restless that you have been moving around a lot more than usual: not at all 9. Thoughts that you would be better off or of hurting yourself in some way: not at all Total score: 0 Depression Screening Interpretation: Negative Depression Screening Done: Yes Source: Developed by Drs. Art Colbert, Alba Higgins, Taco Majano and colleagues, with an educational jolly from [employer]. Thrive Questionnaire Date Thrive assessed: 03/21/25 I am a: Patient Within the past 12 months, did the food you bought not last and you didn't have the money to get more?: Never true Within the past 12 months, did you worry whether your food would run out before you got money to buy more?: Never true Do you have trouble getting transportation to medical appointments?: No Do you have trouble paying your heating and electricity bill?: No Do you have trouble taking care of your child, family member or friend?: No Do you have trouble with day-to-day activities such as bathing, preparing meals, shopping, managing finances, etc.?: No Are you currently unemployed and looking for a job?: No Are you interested in more education?: No THRIVE Score: 0 AUDIT C Alcohol Use Questionnaire (AUDIT-C) 1. How often do you have a drink containing alcohol?: Monthly or less 2. How many drinks containing alcohol do you have on a typical day when you are drinking?: 1 or 2 3. How often do you have six or more drinks on one occasion?: Less than monthly Total Score: 2 JUSTIN-7 AMB Questionnaire JUSTIN-7 Date JUSTIN - 7 assessed: 03/21/25 Feeling nervous, anxious, or on edge: 0 = Not at all Not being able to stop or control worryin = Not at all Worrying too much about different things: 0 = Not at all Trouble relaxin = Not at all Being so restless that it is hard to sit still: 0 = Not at all Becoming easily annoyed or irritable: 0 = Not at all Source: Developed by Drs. Art Colbert, Alba Higgins, Taco Majano and colleagues, with an educational jolly from [employer]. Review of Systems Const Details: - Respiratory: Reports initial dyspnea, now improved - Neurological: Reports insomnia while on sertraline - Gastrointestinal: Reports decreased appetite while on sertraline Physical exam (Primary Care) Vital Signs: Last Vital Signs Temp 97.2 F 03/21/25 11:01 Pulse 82 03/21/25 11:01 BP 122/76 03/21/25 11:01 Pulse Ox 96 03/21/25 11:01 Oxygen Delivery Method Room Air 03/21/25 11:01 BMI result Body Mass Index 21.4 GENERAL Well developed, Well nourished, in no apparent distress HEENT Head-Normocephalic Neck- Supple, No lymphadenopathy, thyroid WNL RESPIRATORY Normal I:E, Clear to auscultation CARDIOVASCULAR Regular, rate and rhythm, No murmurs or rubs GASTROINTESTINAL Soft, nontender, normal bowel sounds, no masses MUSCULOSKELETAL Back- nontender Joints- no swelling or deformity NEUROLOGICAL Gait normal PSYCHIATRIC Oriented to person, place and time Mood and affect -anxiety Appearance WNL Speech WNL Thought processes WNL Tobacco/Smoking Status: Tobacco use Status Tobacco use date assessed 03/21/25 03/21/25 11:02 Patient Tobacco Use Status Never used Tobacco 03/21/25 11:02 Tobacco use type 02/07/25 16:36 e-Cigarette/Vaping Use Currently Using (only vape) 03/21/25 11:02 PHQ-9: PHQ-9 Score PHQ-9: Total score 0 03/21/25 16:26 Depression Screening Interpretation: Negative Thrive Assessment: Date of Thrive Assessment Date Thrive assessed 03/21/25 03/21/25 11:02 Coding Level of Care Code Established Pt Est Pt Level 4 (62420) Established Pt Complex EM visit Add On G2211 Patient Type Established Diagnoses Primary hypertension I10 Hypertension type: primary hypertension Hyperlipidemia E78.5 Anxiety F41.9 Rib pain R07.81 Time Spent (min) 30 Comment Time spent on medication reconciliation, H&P, Patient education and follow up. Assessment & Plan Assessment & Plan (1) Hypertension: Comment: BP today was 122/76 Code(s): I10 - Essential (primary) hypertension Category: Medical Qualifiers: Hypertension type: primary hypertension Qualified Code(s): I10 - Essential (primary) hypertension Plan: The patient will continue with lisinopril and amlodipine for hypertension management, as these medications have effectively controlled his blood pressure. (2) Hyperlipidemia: Code(s): E78.5 - Hyperlipidemia, unspecified Category: Medical Plan: Patient to have labs done. Follow up in 4 weeks to review labs (3) Anxiety: Code(s): F41.9 - Anxiety disorder, unspecified Category: Medical Plan: The patient will continue using hydroxyzine for anxiety management, as it has been effective without significant side effects. Patient to follow up as needed if symptoms persist or worsen. (4) Rib pain: Code(s): R07.81 - Pleurodynia Category: Medical Plan: The patient is advised to monitor his symptoms and seek further evaluation if pain persists or worsens. Plan I discussed with the patient the continuation of lisinopril and amlodipine for hypertension management, as these medications have been effective. We also reviewed the use of hydroxyzine for anxiety, which the patient finds beneficial. I advised the patient to monitor his rib injury symptoms and to seek further evaluation if necessary. Medications: Refilled amlodipine 5 mg PO DAILY 90 tabs 1RF for blood pressure hydroxyzine HCl 25 mg PO TID PRN 90 tabs 2RF anxiety lisinopril 10 mg PO DAILY 90 tabs 2RF for blood pressure Scribe Plan - Not visible on output: - Continue taking lisinopril and amlodipine as prescribed for blood pressure management. - Use hydroxyzine as needed for anxiety relief. - Monitor rib injury symptoms and seek medical attention if pain persists or worsens. - Complete follow-up blood work as planned.
== END 2025-03-21 15:53 | disposition home or self-care (01) ==
LOC: HO.HMCHD 15:20
PROVIDERS: PCP Physician Assistant Medical; Visit Provider Physician Assistant Medical
DX: I10 Essential (primary) hypertension (principal); E78.5 Hyperlipidemia, unspecified; F41.9 Anxiety disorder, unspecified; R07.81 Pleurodynia